=== PATIENT | female | born 2005 | race African-American/Black ===

== ENCOUNTER 2025-06-09 14:59 | Emergency (ER) | payer OTHER ==
[~2025-06-09] VITALS: Ht 170.2 cm; Wt 75.1 kg
[2025-06-09] MEDS ORDERED: IPRATROPIUM 0.5 MG/ALBUTEROL 2.5 MG INH SOL UD 3 ML As Ordered ONE (15:46)
[2025-06-09] MEDS: IPRATROPIUM 0.5 MG/ALBUTEROL 2.5 MG INH SOL UD 3 ML NEB PRN (15:47)
[2025-06-09] MEDS: ALBUTEROL 90 MCG/ACT 8 GM HFA INHALER INH ONE ×2 (17:54→18:10)
[2025-06-09 18:00] LABS: BASO # 0.0 10^3/uL (0.0-0.2); BASO % 0.3 % (0.0-1.0); EOS # 0.4 10^3/uL (0.0-0.5); EOS % 3.8 % (0.0-3.0); LYMPH # 2.8 10^3/uL (1.5-5.0); LYMPH % 29.2 % (24.0-44.0); MONO # 0.6 10^3/uL (0.0-0.8); MONO % 6.0 % (2.0-8.0); NEUTROPHILS # 5.9 10^3/uL (1.5-8.5); NEUTROPHILS % 60.4 % (36.0-66.0); PLATELET COUNT, AUTOMATED 312 10^3/uL (150-450)
[2025-06-09 18:14] LABS: CK-MB VALUE MASS 1.0 NG/ML (<3.6)
[2025-06-09 18:16] LABS: ALT/SGPT 10 U/L (7.0-40); AST/SGOT 16 U/L (<34); CALCIUM LEVEL 8.6 MG/DL (8.5-10.1); CARBON DIOXIDE LEVEL 26 MMOL/L (20-31); CHLORIDE LEVEL 106 MMOL/L (98-107); CPK CREATINE PHOSPHOKINASE 105 U/L (34-145); CREATININE FOR GFR 0.78 MG/DL (0.55-1.30); GLOMERULAR FILTRATION RATE > 90.0 (>60); MB/CK RELATIVE INDEX 0.95 (< OR =4); POTASSIUM SERUM 3.9 MMOL/L (3.5-5.1); SODIUM LEVEL 139 MMOL/L (136-145)
[2025-06-09 18:46] VITALS: BP 119/65; TEMP 97.4; O2SAT 100
== END 2025-06-09 18:50 | disposition home or self-care (01) ==
LOC: M ED 14:59
DX: R06.2 Wheezing (principal); Z91.09 Other allergy status, other than to drugs and biological substances